=== PATIENT | male | born 1970 | race Caucasian/White ===

== ENCOUNTER 2016-05-03 18:56 | Emergency (ER) | payer BC, OTHER ==
[~2016-05-03] VITALS: Ht 165.1 cm; Wt 93.5 kg
[~2016-05-03 18:56] MED LIST: FLNIN NAE; LAMO25TA PO; LEVO88TA3 PO; LITH1TAB10 PO; LSN20 PO; LTHSR450 PO; LVX100 PO; SENN-61 PO; TRAZ1TAB5 PO
[2016-05-03 19:06] VITALS: TEMP 37.2; Ht 165.1 cm; Wt 93.5 kg
[2016-05-03] MEDS ORDERED: FLUT0.15 NAE (19:41)
[2016-05-03] MEDS ORDERED: LAMO200T38 PO (19:59)
[2016-05-03] MEDS ORDERED: LAMO150T32 PO (20:00)
[2016-05-03 20:09] LABS: URINE APPEARANCE CLEAR (CLEAR); URINE BILIRUBIN NEG (NEG); URINE COLOR YELLOW; URINE NITRITE NEG (NEG); URINE SPECIFIC GRAVITY 1.021 (1.000-1.030); UROBILINOGEN NEG (NEG); ZZUR CULT IF INDIC CLEAN CATCH NO
[2016-05-03 20:10] LABS: MANUAL MICROSCOPIC REQUIRED? NO; REVIEW REQ? NO
--- NOTE | 2016-05-03 20:21 | DIAGNOSTIC IMAGING REPORT ---
ULTRASOUND TESTES AND SCROTUM CLINICAL HISTORY: Left scrotal pain and swelling. COMPARISON STUDY: Scrotal ultrasound dated 06/16/2014 and 03/27/2014. TECHNIQUE: Real-time, mcpherson scale, and color Doppler sonography of the testes and scrotum was performed. Images reviewed in the transverse and longitudinal planes. FINDINGS: The right testis is atrophic and heterogeneous in echotexture, measuring 3.7 x 2.0 x 2.2 cm. The left testis is normal in size and echotexture, measuring 4.7 x 3.1 x 3.2 cm. No intratesticular mass lesion is seen. Blood flow is shown in both testes. Normal Doppler waveforms are seen bilaterally. Blood flow appears asymmetrically greater on the left than the right, similar to previous. The right epididymal head measures up to 10 mm in length and the left epididymal head measures up to 6 mm in length. A 13 mm cyst is again noted in the right epididymal head. A small left-sided varicocele measures up to 3 mm. No hydrocele is seen. IMPRESSION: 1. No acute scrotal abnormality is identified. 2. Unchanged appearance of an atrophic and heterogeneous right testis dating back to 03/27/2014. The appearance suggests a remote insult. No intratesticular mass lesion is seen. 3. Small left-sided varicocele. 4. The left testis is normal in appearance. Electronically signed by: Rolf Souza M.D. 05/03/2016 8:19 PM Dictated Date/Time: 05/03/2016 8:15 PM
--- NOTE | 2016-05-03 20:54 | EMERGENCY ROOM VISIT NOTE ---
History Report prepared by Amy: Kasandra Jaimes Under the Supervision of: Dr. Del Rosa D.O. First contact with patient: 19:10 Chief Complaint: TESTICULAR PAIN Stated Complaint: POSSIBLE TORN TESTICLE History of Present Illness The patient is a 46 year old male who presents to the Emergency Room with complaints of persistent left testicular pain that began last evening. He currently rates his discomfort as a 9/10 in severity. The patient states that last evening he was unloading his truck and afterwards he developed the discomfort. He states that he has had the pain in the past, but never this severe. Source of History: patient Onset: last night Position: other (left testicular) Symptom Intensity: 12/25 Timing: other (persistent) Review of Systems See HPI for pertinent positives & negatives. A total of 10 systems reviewed and were otherwise negative. Past Medical & Surgical Medical Problems: (1) Bipolar disorder (2) HTN (hypertension) Family History No pertinent family history Social History Smoking Status: Never Smoker Marital Status: Housing Status: lives with significant other Occupation Status: employed Current/Historical Medications Scheduled Fluvoxamine Maleate (Fluvoxamine Maleate), 200 MG PO HS Lamotrigine (Lamictal), 200 MG PO QAM Lamotrigine (Lamictal), 150 MG PO HS Levothyroxine Sodium (Levothyroxine Sodium), 88 MCG PO DAILY Lisinopril (Lisinopril), 20 MG PO DAILY [place] Carbonate ([place] Carbonate ER), 450 MG PO BID Trazodone Hcl (Desyrel), 100 MG PO HS Scheduled PRN Fluticasone Propionate (Nasal) (Flonase Allergy Relief), 2 SPRAYS HERVE DAILY PRN for CONGESTION Allergies Coded Allergies: Chlorzoxazone (Verified Allergy, Unknown, 08/25/15) Physical Exam Vital Signs Date Time Temp Pulse Resp B/P Pulse Ox O2 Delivery O2 Flow Rate FiO2 05/03/16 20:30 50 16 121/59 97 Room Air 05/03/16 19:06 37.2 60 18 135/72 98 Room Air Physical Exam CONSTITUTIONAL/VITAL SIGNS: Reviewed / noted above. GENERAL: Non-toxic in appearance. INTEGUMENTARY: Warm, dry, and [place]. HEAD: Normocephalic. EYES: without scleral icterus or trauma. ENT/OROPHARYNX: clear and moist. LYMPHADENOPATHY/NECK: Is supple without lymphadenopathy or meningismus. RESPIRATORY: Lungs clear and equal. CARDIOVASCULAR: Regular rate and rhythm. GI/ABDOMEN: Soft and nontender. No organomegaly or pulsatile mass. No rebound or guarding. Normal bowel sounds. : Left scrotal swelling with mild tenderness. No obvious hernia. EXTREMITIES: Warm and well perfused. BACK: No CVA tenderness. NEUROLOGICAL: Intact without focal deficits. PSYCHIATRIC: normal affect. MUSCULOSKELETAL: Normally developed with good muscle tone. Medical Decision & Procedures ER Provider Diagnostic Interpretation: US results as stated below per my review and radiologist interpretation: ULTRASOUND TESTES AND SCROTUM CLINICAL HISTORY: Left scrotal pain and swelling. COMPARISON STUDY: Scrotal ultrasound dated 06/16/2014 and 03/27/2014. TECHNIQUE: Real-time, mcpherson scale, and color Doppler sonography of the testes and scrotum was performed. Images reviewed in the transverse and longitudinal planes. FINDINGS: The right testis is atrophic and heterogeneous in echotexture, measuring 3.7 x 2.0 x 2.2 cm. The left testis is normal in size and echotexture, measuring 4.7 x 3.1 x 3.2 cm. No intratesticular mass lesion is seen. Blood flow is shown in both testes. Normal Doppler waveforms are seen bilaterally. Blood flow appears asymmetrically greater on the left than the right, similar to previous. The right epididymal head measures up to 10 mm in length and the left epididymal head measures up to 6 mm in length. A 13 mm cyst is again noted in the right epididymal head. A small left-sided varicocele measures up to 3 mm. No hydrocele is seen. IMPRESSION: 1. No acute scrotal abnormality is identified. 2. Unchanged appearance of an atrophic and heterogeneous right testis dating back to 03/27/2014. The appearance suggests a remote insult. No intratesticular mass lesion is seen. 3. Small left-sided varicocele. 4. The left testis is normal in appearance. Electronically signed by: Rolf Souza M.D. 05/03/2016 8:19 PM Dictated Date/Time: 05/03/2016 8:15 PM Laboratory Results Test 05/03/16 19:30 Urine Color YELLOW Urine Appearance CLEAR (CLEAR) Urine pH 6.0 (4.5-7.5) Urine Specific [place] 1.021 (1.000-1.030) Urine Protein NEG (NEG) Urine Glucose (UA) NEG (NEG) Urine Ketones NEG (NEG) Urine Occult Blood NEG (NEG) Urine Nitrite NEG (NEG) Urine Bilirubin NEG (NEG) Urine Urobilinogen NEG (NEG) Urine Leukocyte Esterase NEG (NEG) Urine WBC (Auto) 0 /hpf (0-5) Urine RBC (Auto) 0-4 /hpf (0-4) Urine Hyaline Casts (Auto) 0 /lpf (0-5) Urine Epithelial Cells (Auto) 5-10 /lpf (0-5) Urine Bacteria (Auto) NEG (NEG) Laboratory results as stated above per my review. ED Course 1924: Previous medical records were reviewed. The patient was evaluated in room A10. A complete history and physical examination was performed. 2055: I reevaluated the patient and he is resting comfortably. I discussed the exam findings with him and I discussed the treatment plan. He verbalized complete understanding and agreement. He is ready to go home. Medical Decision Differential diagnosis: Etiologies such as torsion, mass, infection, hernia, hydrocele, epididymitis, trauma, intra-abdominal process, as well as others were entertained. This is a 46-year-old male who presents to the ED with a chief complaint left testicular discomfort. The patient states that his symptoms started last night. He states that he was unloading a truck earlier in the day but does not recall any specific injury related to that. The patient denies any other specific symptoms. No urinary symptoms. No penile discharge. He denies being sexually active. The patient's exam is noted above. An ultrasound of the scrotum reveals right testicular atrophy which is chronic dated back to 2013. He also has a small left-sided varicocele. The testicular description on the left is normal. Urinalysis is normal. The patient was told the results of the test. He is felt to be stable for discharge and outpatient follow-up. Impression Primary Impression: Testicle pain Scribe Attestation The scribe's documentation has been prepared under my direction and personally reviewed by me in its entirety. I confirm that the note above accurately reflects all work, treatment, procedures, and medical decision making performed by me. Departure Information Dispostion Home / Self-Care Referrals Silke Givens D.O. (PCP) Forms HOME CARE DOCUMENTATION FORM, IMPORTANT VISIT INFORMATION, WORK / SCHOOL INSTRUCTIONS Patient Instructions My [facility] Additional Instructions Follow-up with your doctor for further care and evaluation in 1-2 days if symptoms persist. Return to the emergency department for worsening or new symptoms or any concerns. You have been examined and treated today on an emergency basis only. This is not a substitute for, or an effort to provide, complete comprehensive medical care. It is impossible to recognize and treat all injuries or illnesses in a single emergency department visit. It is therefore important that you follow up closely with your doctor. Call as soon as possible for an appointment.
[2016-05-03 21:07] VITALS: BP 123/61; PULSE 54; O2SAT 98
== END 2016-05-03 21:09 | disposition home or self-care (01) ==
LOC: C.EDB 18:58 → C.EDA 21:09
DX: N48.89 Other specified disorders of penis (principal); I10 Essential (primary) hypertension; F31.9 Bipolar disorder, unspecified; Z79.899 Other long term (current) drug therapy; Z88.8 Allergy status to other drugs, medicaments and biological substances

== ENCOUNTER 2016-10-18 20:30 | Emergency (ER) | payer BC ==
[~2016-10-18] VITALS: Ht 165.1 cm; Wt 91.2 kg
[~2016-10-18 20:30] MED LIST changes: -FLNIN NAE; +FLUT0.15 NAE; +LAMO150T32 PO; +LAMO200T38 PO; -LAMO25TA PO; -LITH1TAB10 PO; -SENN-61 PO
[2016-10-18 20:34] VITALS: Ht 165.1 cm; Wt 91.2 kg
[2016-10-18] MEDS ORDERED: ABL/5 PO (21:08)
[2016-10-18] MEDS ORDERED: SODIUM CHLORIDE 0.9% 1000ML 1,000 ML IV STA (21:38)
[2016-10-18 21:51] VITALS: TEMP 36.7
[2016-10-18 22:08] LABS: URINE APPEARANCE CLEAR (CLEAR); URINE BILIRUBIN NEG (NEG); URINE COLOR YELLOW; URINE NITRITE NEG (NEG); URINE PH 6.5 (4.5-7.5); URINE SPECIFIC GRAVITY 1.019 (1.000-1.030); UROBILINOGEN NEG (NEG); ZZUR CULT IF INDIC CLEAN CATCH NO
[2016-10-18 22:14] LABS: MANUAL MICROSCOPIC REQUIRED? NO; REVIEW REQ? NO
[2016-10-18 22:23] LABS: BASO % 0.3 %; BASO ABS # 0.02 K/uL (0-0.2); COMPLETE YES; EOS % 2.9 %; HEMATOCRIT 41.3 % (42-52); IG% 0.3 %; LYMPH % 28.2 %; LYMPH ABS # 1.96 K/uL (1.2-3.4); MEAN CELL VOLUME 83.8 fL (80-100); MEAN CORPUSCULAR HEMOGLOBIN 29.2 pg (25-34); MEAN CORPUSCULAR HGB CONC 34.9 g/dl (32-36); MONO % 9.5 %; NEUT % 58.8 %; PLATELET COUNT 284 K/uL (130-400); RED BLOOD COUNT 4.93 M/uL (4.7-6.1); WHITE BLOOD COUNT 6.94 K/uL (4.8-10.8)
[2016-10-18 22:40] LABS: BUN/CREATININE RATIO 15.3 (10-20); CREATININE 1.3 mg/dl (0.60-1.40)
[2016-10-18] MEDS ORDERED: OPTIRAY 320 IV PRN (22:45)
--- NOTE | 2016-10-18 22:48 | DIAGNOSTIC IMAGING REPORT ---
SINGLE VIEW CHEST CLINICAL HISTORY: Atypical chest pain. FINDINGS: An AP, portable, upright chest radiograph is compared to study dated 08/25/2015. The examination is degraded by portable technique and apical lordotic positioning. The cardiomediastinal silhouette is unremarkable. The lungs and pleural spaces are clear. No pneumothorax is seen. The bony thorax is grossly intact. IMPRESSION: No active disease in the chest. Electronically signed by: Rolf Souza M.D. 10/18/2016 10:47 PM Dictated Date/Time: 10/18/2016 10:46 PM
[2016-10-18 22:55] LABS: CKMB/CK RATIO 1.3 (0-3.0)
[2016-10-19] MEDS ORDERED: MAGNESIUM CITRATE 296 ML/BTL PO STA (00:56)
[2016-10-19 01:27] VITALS: BP 128/80; PULSE 79; O2SAT 98
--- NOTE | 2016-10-19 03:35 | EMERGENCY ROOM VISIT NOTE ---
History Report prepared by Amy: Kasandra Jaimes Under the Supervision of: Dr. Nino Boswell M.D. First contact with patient: 21:38 Chief Complaint: ABDOMINAL PAIN Stated Complaint: ABD PAIN,NOT DRINKING, FEELING ILL History of Present Illness The patient is a 46 year old male who presents to the Emergency Room with complaints of persistent right lower quadrant abdominal pain that began six days ago. He currently rates his discomfort as a 6/10 in severity. The patient states that his pain has been persistent the last six days, but states that today he became nauseous. He additionally reports intermittent chills over the last few days. The patient states that he had a small bowel movement this morning, but states that otherwise he has been constipated since last Monday. He states that he has noticed some slight chest pain intermittently that began around noon, but attributes that to his anxiety. The patient denies any previous surgical history on his abdomen. Pt denies LOC, headache, fevers, diaphoresis, visual changes, neck pain, breathing difficulties, vomiting, back pain, melena, hematochezia, urinary symptoms, numbness, weakness, lymphadenopathy, rash, or other complaints. Source of History: patient Onset: six days ago Position: abdomen (RLQ) Symptom Intensity: 6/10 Timing: other (persistent) Associated Symptoms: + chills, + chest pain, + nausea Note: Associated Symptoms: constipation Review of Systems See HPI for pertinent positives and negatives. A total of ten systems were reviewed and were otherwise negative. Past Medical & Surgical Medical Problems: (1) Bipolar disorder (2) HTN (hypertension) Family History No pertinent family history Social History Smoking Status: Current Every Day Smoker Marital Status: Housing Status: lives with significant other Occupation Status: employed Current/Historical Medications Scheduled Aripiprazole (Abilify), 5 MG PO DAILY Fluvoxamine Maleate (Fluvoxamine Maleate), 200 MG PO HS Lamotrigine (Lamictal), 200 MG PO BID Levothyroxine Sodium (Levothyroxine Sodium), 88 MCG PO DAILY Lisinopril (Lisinopril), 20 MG PO DAILY [place] Carbonate ([place] Carbonate ER), 450 MG PO BID Trazodone Hcl (Desyrel), 100 MG PO HS Scheduled PRN Fluticasone Propionate (Nasal) (Flonase Allergy Relief), 2 SPRAYS HERVE DAILY PRN for CONGESTION Allergies Coded Allergies: Chlorzoxazone (Verified Allergy, Unknown, 10/18/16) Physical Exam Vital Signs Date Time Temp Pulse Resp B/P (MAP) Pulse Ox O2 Delivery O2 Flow Rate FiO2 10/19/16 01:27 79 16 128/80 98 10/18/16 23:39 51 16 128/80 96 Room Air 10/18/16 21:51 36.7 56 18 137/62 97 Room Air 10/18/16 20:34 36.8 70 18 125/79 98 Room Air Physical Exam GENERAL: Awake, alert, well-appearing, in no distress HENT: Normocephalic, atraumatic. Oropharynx unremarkable. EYES: Normal conjunctiva. Sclera non-icteric. NECK: Supple. No nuchal rigidity. FROM. No JVD. RESPIRATORY: Clear to auscultation. CARDIAC: Regular rate, normal rhythm. Extremities warm and well perfused. Pulses equal. ABDOMEN: Right lower quadrant tenderness to palpation. Soft, non-distended. No rebound or guarding. No masses. RECTAL: Deferred. MUSCULOSKELETAL: Chest examination reveals no tenderness. The back is symmetrical on inspection without obvious abnormality. There is no CVA tenderness to palpation. No joint edema. LOWER EXTREMITIES: Calves are equal size bilaterally and non-tender. No edema. No discoloration. NEURO: Normal sensorium. No sensory or motor deficits noted. SKIN: No rash or jaundice noted. Medical Decision & Procedures ER Provider Diagnostic Interpretation: Radiology results as stated below per my review and radiologist interpretation: SINGLE VIEW CHEST CLINICAL HISTORY: Atypical chest pain. FINDINGS: An AP, portable, upright chest radiograph is compared to study dated 08/25/2015. The examination is degraded by portable technique and apical lordotic positioning. The cardiomediastinal silhouette is unremarkable. The lungs and pleural spaces are clear. No pneumothorax is seen. The bony thorax is grossly intact. IMPRESSION: No active disease in the chest. Electronically signed by: Rolf Souza M.D. 10/18/2016 10:47 PM Dictated Date/Time: 10/18/2016 10:[address] Abdomen and Pelvis: Compared to 06/18/15. Unremarkable appendix. Fluid in the transverse colon, can be seen with diarrheal disease. No evidence of bowel obstruction. Additional incidental findings. Radiologist: Deedee Marroquin MD Study ready at 3170 and initial results transmitted at 0020. Laboratory Results 10/18/16 22:10 Red Blood Count 4.93, Mean Corpuscular Volume 83.8, Mean Corpuscular Hemoglobin 29.2, Mean Corpuscular Hemoglobin Concent 34.9, Mean Platelet Volume 9.0, Neutrophils (%) (Auto) 58.8, Lymphocytes (%) (Auto) 28.2, Monocytes (%) (Auto) 9.5, Eosinophils (%) (Auto) 2.9, Basophils (%) (Auto) 0.3, Neutrophils # (Auto) 4.08, Lymphocytes # (Auto) 1.96, Monocytes # (Auto) 0.66, Eosinophils # (Auto) 0.20, Basophils # (Auto) 0.02 10/18/16 22:10 Test 10/18/16 21:49 10/18/16 22:10 Urine Color YELLOW Urine Appearance CLEAR (CLEAR) Urine pH 6.5 (4.5-7.5) Urine Specific [place] 1.019 (1.000-1.030) Urine Protein NEG (NEG) Urine Glucose (UA) NEG (NEG) Urine Ketones NEG (NEG) Urine Occult Blood NEG (NEG) Urine Nitrite NEG (NEG) Urine Bilirubin NEG (NEG) Urine Urobilinogen NEG (NEG) Urine Leukocyte Esterase NEG (NEG) White Blood Count 6.94 K/uL (4.8-10.8) Red Blood Count 4.93 M/uL (4.7-6.1) Hemoglobin 14.4 g/dL (14.0-18.0) Hematocrit 41.3 % (42-52) Mean Corpuscular Volume 83.8 fL (80-100) Mean Corpuscular Hemoglobin 29.2 pg (25-34) Mean Corpuscular Hemoglobin Concent 34.9 g/dl (32-36) Platelet Count 284 K/uL (130-400) Mean Platelet Volume 9.0 fL (7.4-10.4) Neutrophils (%) (Auto) 58.8 % Lymphocytes (%) (Auto) 28.2 % Monocytes (%) (Auto) 9.5 % Eosinophils (%) (Auto) 2.9 % Basophils (%) (Auto) 0.3 % Neutrophils # (Auto) 4.08 K/uL (1.4-6.5) Lymphocytes # (Auto) 1.96 K/uL (1.2-3.4) Monocytes # (Auto) 0.66 K/uL (0.11-0.59) Eosinophils # (Auto) 0.20 K/uL (0-0.5) Basophils # (Auto) 0.02 K/uL (0-0.2) RDW Standard Deviation 38.0 fL (36.4-46.3) RDW Coefficient of Variation 12.5 % (11.5-14.5) Immature Granulocyte % (Auto) 0.3 % Immature Granulocyte # (Auto) 0.02 K/uL (0.00-0.02) Anion Gap 8.0 mmol/L (3-11) Est Creatinine Clear Calc Drug Dose 74.5 ml/min Estimated GFR () 76.4 Estimated GFR (Non- 65.9 BUN/Creatinine Ratio 15.3 (10-20) Calcium Level 9.0 mg/dl (8.5-10.1) Total Bilirubin 0.4 mg/dl (0.2-1) Direct Bilirubin 0.1 mg/dl (0-0.2) Aspartate Amino Transf (AST/SGOT) 29 U/L (15-37) Alanine Aminotransferase (ALT/SGPT) 47 U/L (12-78) Alkaline Phosphatase 77 U/L (45-117) Total Creatine Kinase 434 U/L (39-308) Creatine Kinase MB 5.6 ng/ml (0.5-3.6) Creatine Kinase MB Ratio 1.3 (0-3.0) Troponin I < 0.015 ng/ml (0-0.045) Total Protein 7.1 gm/dl (6.4-8.2) Albumin 4.1 gm/dl (3.4-5.0) Lipase 163 U/L (73-393) Laboratory results reviewed by me Medications Administered Medications (Trade) Dose Ordered Sig/Sarah Route Start Time Stop Time Status Last Admin Dose Admin Sodium Chloride 1,000 ml @ 125 mls/hr Q8H STAT IV 10/18/16 21:38 10/19/16 02:25 DC 10/18/16 22:10 125 MLS/HR ECG Indication: abdominal pain, chest pain Rate (beats per minute): 53 Rhythm: sinus bradycardia Findings: nonspecific-ST abn, no acute ischemic change, no ectopy Comparison ECG Date: 08/25/15 Change: no significant change ED Course 2137: Ordered Sodium Chloride 1000 ml @ 125 mls/hr IV. 2216: The patient was evaluated in room B12B. A complete history and physical exam was performed. 0020: I reevaluated the patient and he is resting comfortably. I discussed the exam findings with him thus far. 6: Ordered Magnesium Citrate 296 ml PO. 0100: I reevaluated the patient and he is resting. I discussed the exam findings with him and I discussed the treatment plan with him. He verbalized complete understanding and agreement. He is ready to go home. Medical Decision Medication Reconciliation: I attest that I have personally reviewed the patient' s current medication list Blood pressure screening: Patient was found to have an elevated blood pressure and was referred to their primary doctor for recheck and further treatment. Triage Nursing notes reviewed. The patient's presentation and history were concerning for abdominal pain and constipation. Patient also noted some chest discomfort that was present all day but thought it was related to anxiety. Etiologies such as constipation, appendicitis, diverticulitis, obstruction, inflammatory bowel disease, renal colic, PUD, biliary pathology, pancreatitis, mesenteric ischemia, aortic pathology, infections, genitourinary, UTI, perforated viscus, as well as others were entertained. The patient was evaluated. Clinically he was doing well. He did have some tenderness in the right lower quadrant. The patient underwent blood work. This was unremarkable. CBC, chemistry panel, urinalysis, cardiac markers, LFTs , and lipase were negative. The patient underwent CT imaging. There was no significant abnormalities noted. Normal appendix. Chest x-ray did not reveal any significant findings. On reassessment the patient was doing well. I discussed using magnesium citrate for a cleanout and following up closely in the office. The patient felt comfortable with this. Family was present and agreed. If he worsens in any way he'll come back. The patient states he is only had one bowel movement in the last 7 days. This is likely the cause of his discomfort although he did not have a significant amount of stool in the colon on CT imaging. He has been using MiraLAX. By the evaluation outlined above other emergent etiologies such as those listed in the differential, as well as others, were deemed relatively unlikely. The patient was educated about the findings as listed above. All questions were answered and the patient was pleased with the treatment. Return instructions were outlined and the patient was discharged in stable condition. The patient was referred to his PCP for follow-up for a recheck of the current condition. Impression Primary Impression: Lower abdominal pain Additional Impression: Constipation Scribe Attestation The scribe's documentation has been prepared under my direction and personally reviewed by me in its entirety. I confirm that the note above accurately reflects all work, treatment, procedures, and medical decision making performed by me. Departure Information Dispostion Home / Self-Care Referrals Silke Givens D.O. (PCP) Forms Call Back Authorization, HOME CARE DOCUMENTATION FORM, IMPORTANT VISIT INFORMATION, Work Instructions Patient Instructions My [facility] Additional Instructions Magnesium citrate, 1/2 bottle for constipation. If you don't have a good bowel movement in 8 hrs then drink the other half. This is available over-the- counter. Tylenol: Take 1000 mg every 6 hours as needed for pain. Do not take more than 3000 mg in a 24 hour period. And/or Ibuprofen(Motrin, Advil) may be used for fever or pain. Use 600mg every six hours as needed. Take with food. Avoid using more than 2400mg in a 24 hour period. Do not use 2400mg per day for more than three consecutive days without physician direction. Prolonged inappropriate use can lead to stomach upset or ulcers. Rest and drink plenty of fluids. Increase fiber in your diet. Return to the ER for worsening abdominal pain, vomiting, fevers, bloody stools, or as needed. Follow-up with your primary care physician in one to 2 days for a recheck of your current condition. Problem Qualifiers
--- NOTE | 2016-10-19 06:41 | DIAGNOSTIC IMAGING REPORT ---
CT ABD/PELVIS IV CONTRAST ONLY CLINICAL HISTORY: Right lower quadrant abdominal pain. Chills. COMPARISON STUDY: 06/18/2015 TECHNIQUE: Following the IV administration of 93 mL of Optiray-320, CT scan of the abdomen and pelvis was performed from the lung bases to the proximal femurs. Images are reviewed in the axial, sagittal, and coronal planes. IV contrast was administered without complication. CT DOSE: 634.51 mGy.cm FINDINGS: Lower chest: The heart is normal in size and configuration, without pericardial effusion. The lung bases and pleural spaces are clear. Liver: There is mild hepatic steatosis. No focal hepatic masses are visualized. Gallbladder: Contracted Spleen: Normal in size and attenuation. Pancreas: Unremarkable. Adrenal glands: Unremarkable. Kidneys: There is symmetric renal cortical enhancement. The kidneys are normal in size without hydronephrosis. Bowel: There are no transition zones indicate bowel obstruction. There is no acute diverticulitis. There is no evidence of acute appendicitis. There is fluid within nondilated colon with scattered air-fluid levels. This is a nonspecific finding but can be seen in diarrheal illnesses. Peritoneum: There is no intraperitoneal free air or abdominal ascites. There is a small fat-containing right inguinal hernia. Vasculature: The abdominal aorta is normal in course and caliber. Adenopathy: None. Pelvic viscera: The bladder, and pelvic viscera are unremarkable. Skeletal structures: Degenerative changes are present most pronounced the L5-S1 level. IMPRESSION: 1. No evidence of bowel obstruction. No evidence of free air 2. No evidence of acute diverticulitis. No evidence of acute appendicitis. 3. Fluid within nondilated colon Electronically signed by: Tremayne Mcqueen M.D. 10/19/2016 6:39 AM Dictated Date/Time: 10/19/2016 6:35 AM
== END 2016-10-19 01:27 | disposition home or self-care (01) ==
LOC: C.EDB 20:31
DX: K59.00 Constipation, unspecified (principal); F31.9 Bipolar disorder, unspecified; I10 Essential (primary) hypertension; F17.210 Nicotine dependence, cigarettes, uncomplicated; Z79.899 Other long term (current) drug therapy

== ENCOUNTER 2016-12-25 14:53 | Emergency (ER) | payer BC ==
[~2016-12-25] VITALS: Ht 165.1 cm; Wt 93.3 kg
[~2016-12-25 14:53] MED LIST changes: +ABL/5 PO; -LAMO150T32 PO
[2016-12-25 15:16] VITALS: TEMP 37; Ht 165.1 cm; Wt 93.3 kg
[2016-12-25] MEDS ORDERED: SODIUM CHLORIDE 0.9% 1000ML 1,000 ML IV STA (16:30)
[2016-12-25] MEDS ORDERED: ONDANSETRON INJ 2 MG/ML 2 ML VIAL IV STA (16:30)
[2016-12-25 16:57] LABS: BASO % 0.9 %; BASO ABS # 0.06 K/uL (0-0.2); COMPLETE YES; EOS % 3.6 %; HEMATOCRIT 43.2 % (42-52); IG% 0.3 %; LYMPH % 25.9 %; LYMPH ABS # 1.66 K/uL (1.2-3.4); MEAN CELL VOLUME 83.9 fL (80-100); MEAN CORPUSCULAR HEMOGLOBIN 29.3 pg (25-34); MEAN PLATELET VOLUME 9.4 fL (7.4-10.4); MONO % 7.5 %; NEUT % 61.8 %; PLATELET COUNT 268 K/uL (130-400); RED BLOOD COUNT 5.15 M/uL (4.7-6.1); WHITE BLOOD COUNT 6.42 K/uL (4.8-10.8)
[2016-12-25 17:16] LABS: ALT/SGPT 58 U/L (12-78); AST/SGOT 31 U/L (15-37); BLOOD UREA NITROGEN 14 mg/dl (7-18); BUN/CREATININE RATIO 11.7 (10-20); CALCIUM 9.2 mg/dl (8.5-10.1); CARBON DIOXIDE 28 mmol/L (21-32); CHLORIDE 105 mmol/L (98-107); GLUCOSE 97 mg/dl (70-99); POTASSIUM 4.2 mmol/L (3.5-5.1); SODIUM 137 mmol/L (136-145)
[2016-12-25 17:18] LABS: URINE APPEARANCE CLEAR (CLEAR); URINE BILIRUBIN NEG (NEG); URINE COLOR YELLOW; URINE EPITHELIAL CELL AUTO 0-5 /lpf (0-5); URINE NITRITE NEG (NEG); URINE SPECIFIC GRAVITY 1.016 (1.000-1.030); UROBILINOGEN NEG (NEG); ZZUR CULT IF INDIC CLEAN CATCH NO
[2016-12-25 17:19] LABS: ALKALINE PHOSPHATASE 82 U/L (45-117)
[2016-12-25 17:21] LABS: MANUAL MICROSCOPIC REQUIRED? NO; REVIEW REQ? NO
--- NOTE | 2016-12-25 17:46 | DIAGNOSTIC IMAGING REPORT ---
ABDOMEN 2VIEW W/PA CHEST RTN CLINICAL HISTORY: constipation pain. Nausea. COMPARISON STUDY: 10/18/2016 FINDINGS: The soft tissues, psoas shadows, renal outlines and intestinal gas pattern appear normal. There is no evidence for bowel obstruction. There is no evidence for free intraperitoneal air. No abnormal abdominal calcifications are seen. A frontal view of the chest was performed and is unremarkable. IMPRESSION: Normal study. The above report was generated using voice recognition software. It may contain grammatical, syntax or spelling errors. Electronically signed by: Edward Vega M.D. 12/25/2016 5:45 PM Dictated Date/Time: 12/25/2016 5:44 PM
[2016-12-25] MEDS ORDERED: OPTIRAY 320 IV PRN (19:15)
--- NOTE | 2016-12-25 19:21 | DIAGNOSTIC IMAGING REPORT ---
ABD/PELVIS IV AND ORAL CONT CT DOSE: 611.04 mGy.cm HISTORY: Pain ABDOMINAL PAIN/GI TECHNIQUE: Multiaxial CT images of the abdomen and pelvis were performed following the use of intravenous and oral contrast. A dose lowering technique was utilized adhering to the principles of ALARA. COMPARISON STUDY: 10/18/2016 FINDINGS: Lung bases are clear. Mild fatty infiltration of liver. Spleen pancreas are unremarkable. Kidneys negative for hydronephrosis. Bowel pattern is considered nonobstructive. Bladder is midline. There is no significant abdominal pelvic or inguinal adenopathy. Visualized components of the appendix are unremarkable. IMPRESSION: Mild fatty infiltration of liver. Otherwise negative study. No change from the prior study. The above report was generated using voice recognition software. It may contain grammatical, syntax or spelling errors. Electronically signed by: Edward Vega M.D. 12/25/2016 7:20 PM Dictated Date/Time: 12/25/2016 7:15 PM
--- NOTE | 2016-12-25 19:33 | EMERGENCY ROOM VISIT NOTE ---
History Report prepared by Julianibeduardo: Norma Travis Under the Supervision of: Dr. Del Rosa D.O. First contact with patient: 16:25 Chief Complaint: CONSTIPATION Stated Complaint: CRAMPING, CONSTIPATION, NO BOWEL MOVEMENT 2 WEEKS Nursing Triage Summary: Pt states no BM in 2 weeks. "I have tried everything." per pt. Denies n/v. History of Present Illness The patient is a 46 year old male who presents to the Emergency Room with complaints of persistent constipation for the past 2 weeks. He states he has tried "everything" including Candace-Lax with no relief, although it has helped him with constipation issues in the past. He also tried an enema twice, with no success. The patient saw a doctor at [facility] this past , 4 days WRAPPER STRIPPER, and was given a prescription medication, to be taken QID. It has provided no relief. He admits to some nausea but has not vomited. He has experienced "hot flashes" but does not think he's had a fever. Source of History: patient Onset: 2 weeks WRAPPER STRIPPER Position: other (global) Timing: other (persistent) Modifying Factors (Relieving): other (Enema, Candace-Lax) Associated Symptoms: + nausea, No fevers, No vomiting Review of Systems See HPI for pertinent positives & negatives. A total of 10 systems reviewed and were otherwise negative. Past Medical & Surgical Medical Problems: (1) Bipolar disorder (2) HTN (hypertension) Family History No pertinent family history Social History Smoking Status: Never Smoker Alcohol Use: occasionally Drug Use: none Marital Status: Housing Status: lives with significant other Occupation Status: employed Current/Historical Medications Scheduled Aripiprazole (Abilify), 5 MG PO DAILY Fluvoxamine Maleate (Fluvoxamine Maleate), 200 MG PO HS Lamotrigine (Lamictal), 200 MG PO BID Levothyroxine Sodium (Levothyroxine Sodium), 88 MCG PO DAILY Lisinopril (Lisinopril), 20 MG PO DAILY [place] Carbonate ([place] Carbonate ER), 450 MG PO BID Trazodone Hcl (Desyrel), 100 MG PO HS Scheduled PRN Fluticasone Propionate (Nasal) (Flonase Allergy Relief), 2 SPRAYS HERVE DAILY PRN for CONGESTION Allergies Coded Allergies: Chlorzoxazone (Verified Allergy, Unknown, 12/25/16) Physical Exam Vital Signs Date Time Temp Pulse Resp B/P (MAP) Pulse Ox O2 Delivery O2 Flow Rate FiO2 12/25/16 18:17 77 20 139/66 99 Room Air 12/25/16 16:51 52 16 116/78 97 Room Air 12/25/16 16:50 61 12/25/16 15:16 37.0 60 16 131/77 96 Room Air Physical Exam CONSTITUTIONAL/VITAL SIGNS: Reviewed / noted above. GENERAL: Non-toxic in appearance. INTEGUMENTARY: Warm, dry, and [place]. HEAD: Normocephalic. EYES: without scleral icterus or trauma. ENT/OROPHARYNX: clear and moist. LYMPHADENOPATHY/NECK: Is supple without lymphadenopathy or meningismus. RESPIRATORY: Lungs clear and equal. CARDIOVASCULAR: Regular rate and rhythm. GI/ABDOMEN: Soft and mildly tender in the RLQ. No organomegaly or pulsatile mass. No rebound or guarding. Normal bowel sounds. EXTREMITIES: Warm and well perfused. BACK: No CVA tenderness. NEUROLOGICAL: Intact without focal deficits. PSYCHIATRIC: normal affect. MUSCULOSKELETAL: Normally developed with good muscle tone. Medical Decision & Procedures ER Provider Diagnostic Interpretation: Radiology results as stated below per my review and radiologist interpretation: ABDOMEN 2VIEW W/PA CHEST RTN CLINICAL HISTORY: constipation pain. Nausea. COMPARISON STUDY: 10/18/2016 FINDINGS: The soft tissues, psoas shadows, renal outlines and intestinal gas pattern appear normal. There is no evidence for bowel obstruction. There is no evidence for free intraperitoneal air. No abnormal abdominal calcifications are seen. A frontal view of the chest was performed and is unremarkable. IMPRESSION: Normal study. The above report was generated using voice recognition software. It may contain grammatical, syntax or spelling errors. Electronically signed by: Edward Vega M.D. 12/25/2016 5:45 PM ABD/PELVIS IV AND ORAL CONT CT DOSE: 611.04 mGy.cm HISTORY: Pain ABDOMINAL PAIN/GI TECHNIQUE: Multiaxial CT images of the abdomen and pelvis were performed following the use of intravenous and oral contrast. A dose lowering technique was utilized adhering to the principles of ALARA. COMPARISON STUDY: 10/18/2016 FINDINGS: Lung bases are clear. Mild fatty infiltration of liver. Spleen pancreas are unremarkable. Kidneys negative for hydronephrosis. Bowel pattern is considered nonobstructive. Bladder is midline. There is no significant abdominal pelvic or inguinal adenopathy. Visualized components of the appendix are unremarkable. IMPRESSION: Mild fatty infiltration of liver. Otherwise negative study. No change from the prior study. The above report was generated using voice recognition software. It may contain grammatical, syntax or spelling errors. Electronically signed by: Edward Vega M.D. 12/25/2016 7:20 PM Laboratory Results 12/25/16 16:49 Red Blood Count 5.15, Mean Corpuscular Volume 83.9, Mean Corpuscular Hemoglobin 29.3, Mean Corpuscular Hemoglobin Concent 35.0, Mean Platelet Volume 9.4, Neutrophils (%) (Auto) 61.8, Lymphocytes (%) (Auto) 25.9, Monocytes (%) (Auto) 7.5, Eosinophils (%) (Auto) 3.6, Basophils (%) (Auto) 0.9, Neutrophils # (Auto) 3.97, Lymphocytes # (Auto) 1.66, Monocytes # (Auto) 0.48, Eosinophils # (Auto) 0.23, Basophils # (Auto) 0.06 12/25/16 16:49 Test 12/25/16 16:49 12/25/16 16:50 White Blood Count 6.42 K/uL (4.8-10.8) Red Blood Count 5.15 M/uL (4.7-6.1) Hemoglobin 15.1 g/dL (14.0-18.0) Hematocrit 43.2 % (42-52) Mean Corpuscular Volume 83.9 fL (80-100) Mean Corpuscular Hemoglobin 29.3 pg (25-34) Mean Corpuscular Hemoglobin Concent 35.0 g/dl (32-36) Platelet Count 268 K/uL (130-400) Mean Platelet Volume 9.4 fL (7.4-10.4) Neutrophils (%) (Auto) 61.8 % Lymphocytes (%) (Auto) 25.9 % Monocytes (%) (Auto) 7.5 % Eosinophils (%) (Auto) 3.6 % Basophils (%) (Auto) 0.9 % Neutrophils # (Auto) 3.97 K/uL (1.4-6.5) Lymphocytes # (Auto) 1.66 K/uL (1.2-3.4) Monocytes # (Auto) 0.48 K/uL (0.11-0.59) Eosinophils # (Auto) 0.23 K/uL (0-0.5) Basophils # (Auto) 0.06 K/uL (0-0.2) RDW Standard Deviation 38.4 fL (36.4-46.3) RDW Coefficient of Variation 12.5 % (11.5-14.5) Immature Granulocyte % (Auto) 0.3 % Immature Granulocyte # (Auto) 0.02 K/uL (0.00-0.02) Anion Gap 4.0 mmol/L (3-11) Est Creatinine Clear Calc Drug Dose 81.6 ml/min Estimated GFR () 84.1 Estimated GFR (Non- 72.6 BUN/Creatinine Ratio 11.7 (10-20) Calcium Level 9.2 mg/dl (8.5-10.1) Total Bilirubin 0.4 mg/dl (0.2-1) Direct Bilirubin < 0.1 mg/dl (0-0.2) Aspartate Amino Transf (AST/SGOT) 31 U/L (15-37) Alanine Aminotransferase (ALT/SGPT) 58 U/L (12-78) Alkaline Phosphatase 82 U/L (45-117) Total Protein 7.3 gm/dl (6.4-8.2) Albumin 4.3 gm/dl (3.4-5.0) Lipase 145 U/L (73-393) [place] Level 0.8 mMOL/L (0.6-1.2) Urine Color YELLOW Urine Appearance CLEAR (CLEAR) Urine pH 7.0 (4.5-7.5) Urine Specific [place] 1.016 (1.000-1.030) Urine Protein NEG (NEG) Urine Glucose (UA) NEG (NEG) Urine Ketones NEG (NEG) Urine Occult Blood NEG (NEG) Urine Nitrite NEG (NEG) Urine Bilirubin NEG (NEG) Urine Urobilinogen NEG (NEG) Urine Leukocyte Esterase NEG (NEG) Urine WBC (Auto) 1-5 /hpf (0-5) Urine RBC (Auto) 0-4 /hpf (0-4) Urine Hyaline Casts (Auto) 0 /lpf (0-5) Urine Epithelial Cells (Auto) 0-5 /lpf (0-5) Urine Bacteria (Auto) NEG (NEG) Laboratory results as stated above per my review. Medications Administered Medications (Trade) Dose Ordered Sig/Sarah Route Start Time Stop Time Status Last Admin Dose Admin Sodium Chloride 1,000 ml @ 999 mls/hr Q1H1M STAT IV 12/25/16 16:30 12/25/16 17:30 DC 12/25/16 16:53 999 MLS/HR Ondansetron HCl (Zofran Inj) 4 mg NOW STAT IV 12/25/16 16:30 12/25/16 16:32 DC 12/25/16 16:53 4 MG ED Course 1625: Previous medical records were reviewed. The patient was evaluated in room A9. A complete history and physical examination was performed. 1629: Zofran 4 mg IV, NSS 1000 ml @ 999 mls/hr IV. 1932: I reevaluated the patient. He is feeling well and resting comfortably. I discussed his results and discharge instructions and he verbalized complete understanding and agreement. Medical Decision Differential considered: pancreatitis, hepatitis, or acute cholecystitis, AAA, UTI, pyelonephritis, kidney stones, appendicitis, diverticulitis, shingles, bowel obstruction mesenteric ischemia, intussusception, hernia, testicular torsion. This is a 46-year-old male who presents to the ED with a chief complaint of constipation. The patient states that he has not had a normal bowel movement for about 2 weeks. He states that he saw his PCP on and was given a prescription for a stool softener that he is been taking 4 times daily. He states that this is not resolving a bowel movement. He is also tried some over- the-counter remedies as well as enema but this did not help. He reports some mild left-sided abdominal pain. He reports a little bit of nausea without vomiting. Denies fevers. Denies any other significant symptoms. His vital signs are normal. His physical exam revealed a mostly nontender abdomen but he did have some mild tenderness in the right lower quadrant. The bowel sounds. He normal. His exam is otherwise unremarkable and he is in no distress. Acute abdominal series did not show acute process. CBC, complete metabolic did not show abnormalities. [place] level was normal. Urine did not show infection. CT scan of the abdomen pelvis did not show any acute process. The patient was told the results of the test. He is felt to be stable for discharge. Medication Reconcilliation Current Medication List: was personally reviewed by me Blood Pressure Screening Patient's blood pressure: Normal blood pressure Blood pressure disposition: Did not require urgent referral Impression Primary Impression: Constipation Additional Impression: Lower abdominal pain Scribe Attestation The scribe's documentation has been prepared under my direction and personally reviewed by me in its entirety. I confirm that the note above accurately reflects all work, treatment, procedures, and medical decision making performed by me. Departure Information Dispostion Home / Self-Care Referrals Silke Givens D.O. (PCP) Patient Instructions My [facility] Additional Instructions Follow-up with your doctor for further care and evaluation in 1-2 days. Return to the emergency department for worsening or new symptoms or any concerns. You have been examined and treated today on an emergency basis only. This is not a substitute for, or an effort to provide, complete comprehensive medical care. It is impossible to recognize and treat all injuries or illnesses in a single emergency department visit. It is therefore important that you follow up closely with your doctor. Call as soon as possible for an appointment. Problem Qualifiers
[2016-12-25 20:10] VITALS: BP 130/72; PULSE 76; O2SAT 98
== END 2016-12-25 20:11 | disposition home or self-care (01) ==
LOC: C.EDB 14:56 → C.EDA 20:11
DX: K59.00 Constipation, unspecified (principal); R10.30 Lower abdominal pain, unspecified; F31.9 Bipolar disorder, unspecified; I10 Essential (primary) hypertension

== ENCOUNTER 2017-05-31 21:45 | Emergency (ER) | payer BC ==
[~2017-05-31] VITALS: Ht 165.1 cm; Wt 96.0 kg
[~2017-05-31 21:45] MED LIST changes: +LAMO200T35 PO; -LAMO200T38 PO; +TRAZ-120 PO; -TRAZ1TAB5 PO
[2017-05-31 22:18] VITALS: TEMP 37.1; Ht 165.1 cm; Wt 96.0 kg
[2017-05-31] MEDS ORDERED: ALUMINUM/MAGNESIUM SUSP 30 ML UDC PO STA (23:13)
[2017-05-31] MEDS ORDERED: LIDOCAINE HCL 2% VISC SOLN 20 ML UDC PO STA (23:13)
[2017-05-31 23:28] LABS: BASO % 0.6 %; BASO ABS # 0.04 K/uL (0-0.2); EOS % 2.4 %; EOS ABS # 0.17 K/uL (0-0.5); HEMATOCRIT 37.6 % (42-52); HEMOGLOBIN 13.2 g/dL (14.0-18.0); IG# 0.02 K/uL (0.00-0.02); LYMPH % 23.6 %; LYMPH ABS # 1.69 K/uL (1.2-3.4); MEAN CELL VOLUME 84.1 fL (80-100); MEAN CORPUSCULAR HEMOGLOBIN 29.5 pg (25-34); MEAN CORPUSCULAR HGB CONC 35.1 g/dl (32-36); MEAN PLATELET VOLUME 9.1 fL (7.4-10.4); MONO % 9.5 %; MONO ABS # 0.68 K/uL (0.11-0.59); NEUT % 63.6 %; NEUT ABS # 4.57 K/uL (1.4-6.5); PLATELET COUNT 267 K/uL (130-400); RED CELL DISTRIBUTION WIDTH CV 12.7 % (11.5-14.5); RED CELL DISTRIBUTION WIDTH SD 38.7 fL (36.4-46.3); WHITE BLOOD COUNT 7.17 K/uL (4.8-10.8)
[2017-05-31 23:49] LABS: ALBUMIN 3.9 gm/dl (3.4-5.0); BLOOD UREA NITROGEN 15 mg/dl (7-18); CALCIUM 8.9 mg/dl (8.5-10.1); CARBON DIOXIDE 24 mmol/L (21-32); GLUCOSE 93 mg/dl (70-99); POTASSIUM 3.9 mmol/L (3.5-5.1); SODIUM 139 mmol/L (136-145)
[2017-05-31 23:52] LABS: ALT/SGPT 53 U/L (12-78); AST/SGOT 24 U/L (15-37); CREATININE 1.11 mg/dl (0.60-1.40); LIPASE 377 U/L (73-393)
[2017-06-01] LABS: ALKALINE PHOSPHATASE 66 U/L (45-117); CKMB 4.7 ng/ml (0.5-3.6); TOTAL PROTEIN 7.1 gm/dl (6.4-8.2)
--- NOTE | 2017-06-01 00:05 | EMERGENCY ROOM VISIT NOTE ---
History Report prepared by Amy: Yumiko Oconnor Under the Supervision of: Dr. Luann Vitale M.D. First contact with patient: 23:08 Chief Complaint: ABDOMINAL PAIN Stated Complaint: ACID REFLUX, POSSIBLE HERNIA Nursing Triage Summary: Patient reports recent constipation. While straining to BM, patient states he feels like he may have pulled something and that his stomach feels higher in his abdomen. Patient also reports new acid reflux which he ahs never had before. History of Present Illness The patient is a 47 year old male who presents to the Emergency Room with complaints of persistent lower abdominal pain that began one day ago. The patient states that a few days ago he was constipated, noting he did not take any laxatives but that symptom resolved on its own. He notes that while he was constipated, he strained himself but did not experience any severe abdominal pain. The patient states that since yesterday he has been experiencing acid reflux for the first time, noting he did not take any medication to relieve his symptoms. He describes his discomfort as burning underneath his chest which does not radiate, noting it began one day after straining himself. The patient states that he has been dizzy, but denies any falls, vomiting, or changes in his diet. Source of History: patient Onset: one day ago Position: abdomen Quality: other (lower abdominal pain) Timing: other (persistent) Associated Symptoms: No vomiting Note: Associated symptoms include: acid reflux and dizzy. Patient denies: falls or changes in his diet. Review of Systems See HPI for pertinent positives & negatives. A total of 10 systems reviewed and were otherwise negative. Past Medical & Surgical Medical Problems: (1) Bipolar disorder (2) HTN (hypertension) Family History No pertinent family history Social History Smoking Status: Current Some Day Smoker Smokeless Tobacco Use: Yes Alcohol Use: occasionally Drug Use: none Marital Status: Housing Status: lives with significant other Occupation Status: employed Current/Historical Medications Scheduled Fluvoxamine Maleate (Fluvoxamine Maleate), 200 MG PO HS Lamotrigine (Lamictal), 200 MG PO BID Levothyroxine Sodium (Levothyroxine Sodium), 88 MCG PO DAILY Lisinopril (Lisinopril), 20 MG PO DAILY [place] Carbonate ([place] Carbonate ER), 450 MG PO BID Pantoprazole (Protonix), 40 MG PO DAILY Trazodone Hcl (Desyrel), 100 MG PO HS Scheduled PRN Fluticasone Propionate (Nasal) (Flonase Allergy Relief), 2 SPRAYS HERVE DAILY PRN for CONGESTION Ranitidine Hcl (Zantac), 150 MG PO BID PRN for gastritis Allergies Coded Allergies: Chlorzoxazone (Verified Allergy, Unknown, 06/01/17) Physical Exam Vital Signs Date Time Temp Pulse Resp B/P (MAP) Pulse Ox O2 Delivery O2 Flow Rate FiO2 06/01/17 02:15 75 16 130/71 98 Room Air 06/01/17 00:39 76 16 98 Room Air 06/01/17 00:39 126/75 05/31/17 23:41 70 05/31/17 22:18 37.1 68 18 132/75 98 Room Air Physical Exam Vital signs reviewed. General: Well-appearing male, in no significant distress. HEENT: No scleral icterus, PERRLA, neck supple. Atraumatic. Cardiovascular: Regular rate and rhythm, no extra sounds. Pulmonary: Clear to auscultation bilaterally, normal work of breathing. Abdomen: Soft, nontender, nondistended, positive bowel sounds. Musculoskeletal: Atraumatic, no peripheral edema. Neurologic: Patient awake alert and oriented x 3 Skin: Warm, dry, no rash Medical Decision & Procedures ER Provider Diagnostic Interpretation: Radiology results as stated below per my review and radiologist interpretation: Chest x-ray as interpreted by me: One view: Poor inspiratory effort, no focal lung consolidation, no failure, normal mediastinal silhouette. US RUQ: Gallbladder sludge. No significant gallbladder wall thickening. Common bile duct within normal limits. Negative sonographic Villanueva's sign. Fatty liver. Unremarkable right kidney. Radiologist: Deedee Marroquin M.D. Laboratory Results 05/31/17 23:00 Red Blood Count 4.47, Mean Corpuscular Volume 84.1, Mean Corpuscular Hemoglobin 29.5, Mean Corpuscular Hemoglobin Concent 35.1, Mean Platelet Volume 9.1, Neutrophils (%) (Auto) 63.6, Lymphocytes (%) (Auto) 23.6, Monocytes (%) (Auto) 9.5, Eosinophils (%) (Auto) 2.4, Basophils (%) (Auto) 0.6, Neutrophils # (Auto) 4.57, Lymphocytes # (Auto) 1.69, Monocytes # (Auto) 0.68, Eosinophils # (Auto) 0.17, Basophils # (Auto) 0.04 05/31/17 23:00 Test 05/31/17 23:00 06/01/17 01:04 White Blood Count 7.17 K/uL (4.8-10.8) Red Blood Count 4.47 M/uL (4.7-6.1) Hemoglobin 13.2 g/dL (14.0-18.0) Hematocrit 37.6 % (42-52) Mean Corpuscular Volume 84.1 fL (80-100) Mean Corpuscular Hemoglobin 29.5 pg (25-34) Mean Corpuscular Hemoglobin Concent 35.1 g/dl (32-36) Platelet Count 267 K/uL (130-400) Mean Platelet Volume 9.1 fL (7.4-10.4) Neutrophils (%) (Auto) 63.6 % Lymphocytes (%) (Auto) 23.6 % Monocytes (%) (Auto) 9.5 % Eosinophils (%) (Auto) 2.4 % Basophils (%) (Auto) 0.6 % Neutrophils # (Auto) 4.57 K/uL (1.4-6.5) Lymphocytes # (Auto) 1.69 K/uL (1.2-3.4) Monocytes # (Auto) 0.68 K/uL (0.11-0.59) Eosinophils # (Auto) 0.17 K/uL (0-0.5) Basophils # (Auto) 0.04 K/uL (0-0.2) RDW Standard Deviation 38.7 fL (36.4-46.3) RDW Coefficient of Variation 12.7 % (11.5-14.5) Immature Granulocyte % (Auto) 0.3 % Immature Granulocyte # (Auto) 0.02 K/uL (0.00-0.02) Anion Gap 8.0 mmol/L (3-11) Est Creatinine Clear Calc Drug Dose 88.6 ml/min Estimated GFR () 91.8 Estimated GFR (Non- 79.2 BUN/Creatinine Ratio 13.2 (10-20) Calcium Level 8.9 mg/dl (8.5-10.1) Total Bilirubin 0.3 mg/dl (0.2-1) Direct Bilirubin < 0.1 mg/dl (0-0.2) Aspartate Amino Transf (AST/SGOT) 24 U/L (15-37) Alanine Aminotransferase (ALT/SGPT) 53 U/L (12-78) Alkaline Phosphatase 66 U/L (45-117) Total Creatine Kinase 293 U/L (39-308) Creatine Kinase MB 4.7 ng/ml (0.5-3.6) Creatine Kinase MB Ratio 1.6 (0-3.0) Total Protein 7.1 gm/dl (6.4-8.2) Albumin 3.9 gm/dl (3.4-5.0) Lipase 377 U/L (73-393) Troponin I < 0.015 ng/ml (0-0.045) Laboratory results per my review. Medications Administered Medications (Trade) Dose Ordered Sig/Sarah Route Start Time Stop Time Status Last Admin Dose Admin Lidocaine HCl (Viscous Lidocaine 2% Soln) 10 ml NOW STAT PO 05/31/17 23:13 05/31/17 23:17 DC 05/31/17 23:13 10 ML Al Hydroxide/Mg Hydroxide (Maalox Susp) 30 ml NOW STAT PO 05/31/17 23:13 05/31/17 23:17 DC 05/31/17 23:13 30 ML Pantoprazole Sodium (Protonix Tab) 40 mg NOW STAT PO 06/01/17 02:13 06/01/17 02:14 DC 06/01/17 02:28 40 MG ECG Per My Interpretation Indication: abdominal pain Rate (beats per minute): 60 Rhythm: normal sinus Findings: no acute ischemic change, no ectopy Change: The patients electrocardiogram was interpreted by me. ED Course 2311: Past medical records reviewed. The patient was evaluated in room B11. A complete history and physical examination was performed. 2313: Ordered Maalox Susp 30ml PO and Lidocaine HCL 10ml PO. 0213: Ordered Protonix Tab 40mg PO. 0219: Upon reevaluation, the patient appeared to have improvement of his symptoms. I discussed findings with him. He verbalized agreement of the treatment plan. The patient was discharged home. Medical Decision Differential diagnosis: Etiologies such as GERD, cardiac ischemia, aortic dissection, pulmonary embolism , pneumonia, pneumothorax, musculoskeletal, infections, pericarditis, myocarditis, esophageal rupture, gastrointestinal, as well as others were entertained. This patient was evaluated and appeared to be in no significant distress. IV access was obtained and laboratory work was drawn. The patient was given a GI cocktail. EKG reveals no evidence of acute ischemic change. Chest x-ray is clear. Laboratory work reveals negative cardiac enzymes. Ultrasound of right upper quadrant was performed and is negative for acute cholecystitis. The patient was feeling improved after the GI cocktail. He was given Protonix 40 mg by mouth with a prescription. The patient's symptoms may be secondary to his lithium. He was advised to follow-up with his PCP this week and to avoid NSAIDs, alcohol, coffee and soda. He will drink plenty of clear fluids. Patient was advised to return to the ER immediately for worsening of symptoms or any medical concerns. Medication Reconcilliation Current Medication List: was personally reviewed by me Blood Pressure Screening Patient's blood pressure: Normal blood pressure Blood pressure disposition: Did not require urgent referral Impression Primary Impression: Epigastric discomfort Scribe Attestation The scribe's documentation has been prepared under my direction and personally reviewed by me in its entirety. I confirm that the note above accurately reflects all work, treatment, procedures, and medical decision making performed by me. Departure Information Dispostion Home / Self-Care (ERASED) Prescriptions Ranitidine Hcl (ZANTAC) 150 Mg Tab 150 MG PO BID Y for gastritis, #30 TAB Prov: Luann Vitale M.D. 06/01/17 Pantoprazole (Protonix) 40 Mg Tab 40 MG PO DAILY, #30 TAB Prov: Luann Vitale M.D. 06/01/17 Referrals Silke Givens D.[place] (PCP) Forms Call Back Authorization, HOME CARE DOCUMENTATION FORM, IMPORTANT VISIT INFORMATION Patient Instructions My [facility] Additional Instructions Diagnosis: Epigastric abdominal discomfort Protonix 40 mg daily for the next 4 weeks. Zantac 150 mg twice daily as needed for gastritis. Avoid aspirin, Aleve, ibuprofen, alcohol, soda and coffee. Drink plenty of clear fluids. Follow-up with your physician this week for reevaluation. Return to the ER for worsening of symptoms or any medical concerns.
[2017-06-01] MEDS ORDERED: PANT40TA PO (02:13)
[2017-06-01] MEDS ORDERED: RANI150T3 PO (02:13)
[2017-06-01] MEDS ORDERED: PANTOprazole SOD 40 MG TAB PO STA (02:13)
[2017-06-01 02:15] VITALS: BP 130/71; PULSE 75; O2SAT 98
--- NOTE | 2017-06-01 06:52 | DIAGNOSTIC IMAGING REPORT ---
GALLBLADDER-ABD LIMITED HISTORY: 47 years-old Male RUQ pain acute right upper quadrant abdominal pain COMPARISON: CT abdomen and pelvis 12/25/2016 TECHNIQUE: Multiple real-time sonographic images of the abdominal right upper quadrant were obtained assessing grayscale appearance and color flow. FINDINGS: Imaged pancreas is unremarkable with distal body and tail obscured by bowel gas. There is increased echogenicity with poor through transmission of the liver. No focal hepatic mass lesions or intrahepatic biliary ductal dilation. There is a probable fatty sparing are noted near the gelacio hepatis. There is layering gallbladder sludge within the gallbladder lumen. No shadowing cholelithiasis, wall thickening or pericholecystic fluid. Common bile duct is normal, 4.4 mm. The imaged right kidney is unremarkable without hydronephrosis. IMPRESSION: 1. Gallbladder sludge without cholelithiasis or sonographic evidence of acute cholecystitis. 2. Hepatic steatosis. 3. No biliary ductal dilation. The above report was generated using voice recognition software. It may contain grammatical, syntax or spelling errors. Electronically signed by: Cuba Bhatt M.D. 06/01/2017 6:50 AM Dictated Date/Time: 06/01/2017 6:48 AM
--- NOTE | 2017-06-01 06:53 | DIAGNOSTIC IMAGING REPORT ---
CHEST ONE VIEW PORTABLE CLINICAL HISTORY: 47 years-old Male presenting with chest pain. TECHNIQUE: Portable upright AP view of the chest was obtained. COMPARISON: 12/25/2016. FINDINGS: Cardiomediastinal silhouette normal. Mildly low lung volumes with hypoventilatory changes. No focal opacity. No large effusion or pneumothorax. Osseous structures normal. Upper abdomen normal. IMPRESSION: 1. Mildly low lung volumes with hypoventilatory changes. Otherwise no acute cardiopulmonary disease. Electronically signed by: Malik Flanagan M.D. 06/01/2017 6:51 AM Dictated Date/Time: 06/01/2017 6:50 AM
== END 2017-06-01 02:29 | disposition home or self-care (01) ==
LOC: C.EDB 21:47
DX: R10.13 Epigastric pain (principal); R42 Dizziness and giddiness; F31.9 Bipolar disorder, unspecified; I10 Essential (primary) hypertension; F17.210 Nicotine dependence, cigarettes, uncomplicated; Z79.899 Other long term (current) drug therapy